=== PATIENT | male | born 1945 | race Caucasian/White ===

== ENCOUNTER 2016-09-09 14:01 | Emergency (ER) | payer OTHER, MEDICARE ==
[~2016-09-09] VITALS: Ht 185.4 cm; Wt 77.1 kg
[2016-09-09 14:02] VITALS: BP 147/84
[2016-09-09] MEDS ORDERED: IBUPROFEN 600600 M1 PO (14:50)
== END 2016-09-09 15:15 | disposition home or self-care (01) ==
LOC: ER 14:01
DX: S63.501A Unspecified sprain of right wrist, initial encounter (principal); Z95.5 Presence of coronary angioplasty implant and graft; Z95.0 Presence of cardiac pacemaker; Z87.891 Personal history of nicotine dependence; W01.0XXA Fall on same level from slipping, tripping and stumbling without subsequent striking against object, initial encounter; Y93.89 Activity, other specified; Y92.89 Other specified places as the place of occurrence of the external cause; Y99.8 Other external cause status